=== PATIENT | female | born 1995 | race Caucasian/White ===

== ENCOUNTER 2023-02-15 16:18 | Outpatient (REF) | payer BC, SELFPAY ==
--- NOTE | 2023-02-15 14:40 | PAPFT_PTH ---
PATIENT: Alicia Alan LOC: [facility] U#:[id number] AGE/SX: 27/F ROOM: RE02/15/[address]: Mai Devine CNM : 1995 BED: DIS: 02/15/2023 SPEC #: [id number] RECD: 02/15/23 18:25 STATUS: AKILA REDon #: [id number] TERRA: 02/15/23 14:[address]: Mai Devine DEPT: [facility] Cytology RECD BY: Tara Valencia ENTERED: 02/15/23 18:25 SP TYPE: PAPFT OTHR DR: Myla Calderón APRN Tissues: 1 - CX/ENDOCX FOR PAP SMEARS Procedures: PAP THIN PREP/[facility] Screening Comments: [id number]
== END 2023-02-15 16:19 | disposition home or self-care (01) ==
LOC: LBN 16:18
PROVIDERS: PCP Nurse Practitioner; Visit Provider Advanced Practice Midwife
DX: Z12.4 Encounter for screening for malignant neoplasm of cervix (principal)
CPT/HCPCS: 88142

== ENCOUNTER 2024-01-30 02:53 | Outpatient (CLI) | payer BC, SELFPAY ==
[2024-01-30 08:23] LABS: ALT 11 U/L (14-59); AST 18 U/L (15-37); Albumin 3.2 g/dL (3.4-5.0); Alkaline Phosphatase 109 U/L (46-116); Anion Gap 9.1 mmol/L (3-11); BUN 13 mg/dL (7-18); CO2 26.9 mmol/L (21.0-32.0); CREATININE 0.8 mg/dL (0.55-1.02); Calcium 8.9 mg/dL (8.5-10.1); Calculated LDL 101 mg/dL (<100); Chloride 107 mmol/L (98-107); Cholesterol 165 mg/dL (<200); Estimated GFR 102.86 (mL/min/1.73m2); Glucose 94 mg/dL (74-106); HDL Cholesterol 52 mg/dL (40-60); Sodium 143 mmol/L (136-145); Total Protein 7.6 g/dL (6.4-8.2); Triglyceride 62 mg/dL (<150)
[2024-01-30 08:28] LABS: Hemoglobin A1C 5.5 % (<5.7)
== END 2024-01-30 02:54 | disposition home or self-care (01) ==
LOC: LBO 02:53
PROVIDERS: PCP Nurse Practitioner; Referring Provider Nurse Practitioner; Visit Provider Nurse Practitioner
DX: Z13.220 Encounter for screening for lipoid disorders (principal); E66.01 Morbid (severe) obesity due to excess calories
CPT/HCPCS: 36415; 80053; 80061; 83036